=== PATIENT | female | born 1980 | race Caucasian/White ===

== ENCOUNTER → 2017-02-28 | Outpatient (CLI) | payer SELFPAY ==
[~2017-02-28] MED LIST: AZUL500T PO; CETI10 PO; FLON0.053; HYDR200T42 PO; MELO7.5; PREVTAB
[2017-03-01 02:58] LABS: EBV VCA IgM Negative (Negative)
[2017-03-03 09:21] LABS: RMSP TITER IGG ND; RMSP TITER IGM ND; TYPHUS TITER IGG ND; TYPHUS TITER IGM ND
[2017-03-04 19:52] LABS: PARVOVIRUS B19 IGG 7.2 (()); R TYPHI IGM NOT DETECTED (()); R.TYPHI IGG NOT DETECTED (()); RMSF IGM NOT DETECTED (()); SPOTTED FEVER GROUP IGG NOT DETECTED (())
[2017-03-04 23:54] LABS: HERPES 6 IGM <1:20 (()); HERPES INTERPRETATION PAST INFECTION (())
== END ==
LOC: ELAB 09:15
PROVIDERS: ATTEND Surgery
DX: R53.83 Other fatigue (principal)
CPT/HCPCS: 36415; 86664; 86665; 86747; 86757; 86790